=== PATIENT | female | born 1990 | race Caucasian/White ===

== ENCOUNTER 2019-10-05 07:41 | Inpatient (IN) ==
[2019-10-05] MEDS ORDERED: OXYTOCIN 30 UNITS/500 ML BAG IV PRN ×3 (08:40→22:43)
[2019-10-05 09:05] LABS: Hematocrit (blood only) 34.6 % (37-47); Hemoglobin 11.7 g/dL (12.0-16.0); Mean Corpuscular Hemoglobin 27.7 pg (25-34); Mean Platelet Volume 10.3 fL (7.4-10.4); Platelet Count 110 K/uL (130-400); RDW Coefficient of Variation 14.9 % (11.5-14.5); RDW Standard Deviation 44.4 fL (36.4-46.3); Red Blood Count 4.22 M/uL (4.2-5.4); White Blood Count 8.41 K/uL (4.8-10.8)
[2019-10-05] MEDS: LACTATED RINGER'S 1,000 ML IV PRN ×3 (09:20→18:43)
[2019-10-05 09:26] LABS: Mean Corpuscular Hgb Conc 33.8 g/dL (32-36)
--- NOTE | 2019-10-05 09:38 | Labor Progress Brief Note ---
Date of Service October 05, 2019 Subjective 29yo G1 with di-di twins and here for IOL. No OB c/o. Assessment & Plan (1) Dichorionic diamniotic twin : IOL for twins at term, Agustin + pitocin to start now. Trimester: third trimester Qualified Code(s): O30.043 - Twin , dichorionic/diamniotic, third trimester Physical Exam Genitourinary: Manual OB Exam: + cervical dilation 1 cm, + cervical effacement 80%, + station -2 and + amniotic fluid (no leakage) OB Exam Monitor Tracing: + category I Agustin placed above internal os, inflated 30cc without difficulty. Results & Data Vital Signs (Past 12 Hours) Vital Signs Temp Pulse Resp BP 10/05/19 08:27 98.8 F 88 20 133/62 10/05/19 08:23 88 133/62
--- NOTE | 2019-10-05 14:34 | Labor Progress Brief Note ---
Date of Service October 05, 2019 Subjective Reason For Note: Routine Evaluation Tolerating Contractions Assessment & Plan (1) Dichorionic diamniotic twin : Agustin balloon out at this time. AROM done, continue pitocin, epidural on request. Trimester: third trimester Qualified Code(s): O30.043 - Twin , dichorionic/diamniotic, third trimester Present on Admission?: Yes Physical Exam Genitourinary: Speculum/Bimanual Exam: + abnormal bimanual exam Manual OB Exam: + cervical dilation 3 cm and 4 cm, + cervical effacement, + station -2 and + amniotic fluid (AROM) clear OB Exam Monitor Tracing: + external FHT monitor used, + external uterine monitor used and + category I (x2) Results & Data Vital Signs (Past 12 Hours) Vital Signs Temp Pulse Resp BP 10/05/19 14:10 73 135/81 10/05/19 13:05 77 135/68 10/05/19 12:16 78 131/70 10/05/19 11:09 69 137/78 10/05/19 10:02 77 133/73 10/05/19 08:27 98.8 F 88 20 133/62 10/05/19 08:23 88 133/62 10/05/19 08:00 77 133/73
[2019-10-05] MEDS ORDERED: BUPIVACAINE 0.25% 30 ML VIAL ONE (15:03)
[2019-10-05] MEDS ORDERED: ePHEDrine sulfate 50 MG/ML AMP ONE (15:03)
[2019-10-05] MEDS ORDERED: fentaNYL citrate 100 MCG/2 ML VIAL ONE (15:03)
[2019-10-05] MEDS ORDERED: fentaNYL 2MCG/ML ROPIV 1.25MG/ML 100 ML BAG EPI ONE (15:04)
--- NOTE | 2019-10-05 16:03 | Anesthesiology Consultation ---
Date of Service October 05, 2019 Assessment & Plan Chart Review Chart Review: Acceptable Risk for Surgery and Patient NOT seen in Pre Admission Testing Consults Requested none ASA ASA2 Proposed Anesthesia Anesthesia Type: Labor Epidural Risk / Benefits Reviewed With: PT / POA / Parent / Guardian, Accepts Plan and Informed Consent Obtained History Height/Weight Height: 5 ft 10 in Weight: 102.058 kg Allergies Allergy/AdvReac Type Severity Reaction Status Date / Time No Known Drug Allergies Allergy Unknown Verified 10/03/19 10:16 Medications Home Medications Medication Instructions Recorded Confirmed Last Taken aspirin [Aspirin Low Dose] 81 mg PO DAILY 09/07/19 10/05/19 10/04/19 16:00 cholecalciferol (vitamin D3) 3,000 unit PO DAILY 09/07/19 10/05/19 10/04/19 16:00 ferrous sulfate 325 mg PO DAILY 09/07/19 10/05/19 10/04/19 16:00 vit [id number] 1 tab PO DAILY 09/07/19 10/05/19 10/04/19 16:00 [ Vitamin] folic acid 1 mg PO DAILY 09/26/19 10/05/19 10/04/19 16:00 Active Medications Generic Name Dose Route Start Last Admin Trade Name Freq PRN Reason Stop Dose Admin Lactated Ringer's 1,000 mls @ 125 mls/hr 10/05/19 08:40 10/05/19 15:56 Lr IV 10/07/19 08:39 125 mls/hr .Q8H PRN Infusion L&D Protocol Protocol Oxytocin 30 units in 500 mls @ 9 mls/hr 10/05/19 08:40 10/05/19 13:00 Pitocin IV 10/07/19 08:39 0.54 units/hr .Q24H PRN 9 mls/hr Labor Induction/Augmentation Titration Protocol 0.54 UNITS/HR NPO Date Last Intake of Fluids: 10/05/19 Time Last Intake of Fluids: 06:00 Date Last Intake of Solids: 10/05/19 Time Last Intake of Solids: 12:00 Past Medical History Medical History Abnormal finding on screening of mother History of asthma History of varicella Hx of pertussis with 34 completed weeks gestation Exercise / Class Metabolic Activity II 4-5 Yardwork/Stairs/Walk up hill Past Family History Family History Mother Breast cancer Grandmother (Maternal) Breast cancer Grandfather (Paternal) Heart disease Past Surgical History Surgical History S/P wisdom tooth extraction Past Anesthesia History No Hx of Anesthesia Complications and No Family Hx of Anesthesia Complications History of PONV No Hx of PONV and No Hx of Motion Sickness Social History Smoking Status: Never smoker Do You Dip or Chew Tobacco: No Hx Alcohol Use: No Hx Substance Use: No substance use type: does not use Physical Exam Vital Signs Last Vital Signs Temp 37.1 C 10/05/19 08:27 Pulse 71 10/05/19 16:01 Resp 20 10/05/19 08:27 BP 130/74 10/05/19 16:01 Pulse Ox 100 10/05/19 15:59 ENMT Mouth: no dentition abnormality Thyromental Distance: > or= 3.5 Finger Breadths Mallampati Class: II Neck normal visual inspection Respiratory normal respiratory effort Auscultation: lungs clear to auscultation bilaterally Cardiovascular Rate/Rhythm: regular rate and regular rhythm Psychiatric Orientation: alert Testing Laboratory Results 10/05/19 08:56
[2019-10-05] MEDS ORDERED: NALOXONE HCL 1 MG in SODIUM CHLORIDE 0.9% 1000ML 1,000 ML IV PRN (16:45)
[2019-10-05] MEDS ORDERED: NALBUPHINE HCL INJ 10 MG/ML AMP IV PRN (16:45)
[2019-10-05] MEDS ORDERED: NALOXONE HCL 0.4 MG/1 ML VIAL/CARP IV PRN (16:45)
[2019-10-05] MEDS ORDERED: ONDANSETRON INJ 2 MG/ML 2 ML VIAL IV PRN (16:45)
[2019-10-05] MEDS ORDERED: ePHEDrine sulfate 50 MG/ML AMP IV PRN (16:45)
[2019-10-05] MEDS ORDERED: fentaNYL 2MCG/ML ROPIV 1.25MG/ML 100 ML BAG EPI PRN (16:45)
[2019-10-05] MEDS ORDERED: DiphenhydrAMINE HCL 50 MG/ML VIAL IV PRN (16:45)
--- NOTE | 2019-10-05 22:29 | Anesthesia Procedure Note ---
Date of Service October 05, 2019 Anesthesia Post Epidural Note Vital Signs Vital Signs: Temp Pulse Resp BP Pulse Ox 36.9 C 77 18 130/65 99 10/05/19 19:00 10/05/19 22:17 10/05/19 19:30 10/05/19 20:04 10/05/19 22:17 Pain Intensity Bilateral Abdomen: Pain Intensity: 2 Notes Mental Status: alert / awake / arousable Nausea / Vomiting: adequately controlled Pain: adequately controlled Airway Patency, RR, SpO2: stable & adequate BP & HR: stable & adequate Hydration State: stable & adequate Neuraxial Anesthesia: was administered and sensory block is resolving Anesthetic Complications: no major complications apparent and Pt Satisfied with anesthetic care Epidural: Removed without complications and With tip intact
--- NOTE | 2019-10-05 22:35 | Delivery Summary ---
Vaginal Delivery Summary Date of Service October 05, 2019 Vaginal Delivery Summary DIAGNOSES: 1. Di-Di Twin intrauterine at 38w1d gestation. 2. Induction of labor. 3. Group B Streptococcus Neg. PROCEDURE: Spontaneous vaginal delivery x2 and repair of second degree laceration. SURGEON: Chioma Kellogg MD. AUTOMOTIVE LOT ATTENDANT: Dung Torre MD. ESTIMATED BLOOD LOSS: 500 mL. COMPLICATIONS: None. PLACENTA: Spontaneous and intact with a 3-vessel cord x2. DISPOSITION: Stable to labor and delivery. DESCRIPTION: The patient pushed well and brought the head of baby A to [facility] in OA position. The 's head was allowed to deliver with contraction force and no further active pushing, with the perineum protected during this time. There was a compound presentation of posterior/left arm with hand alongside cheek. There was no nuchal cord. The shoulders and body delivered without any difficulty, and the was vigorous and moving all extremities, and making respiratory efforts. The cord was doubly clamped by the MD and then cut. Baby A (female) was taken to the warmer for attention of the equipment installer. Vagina was examined and found to have a 2nd degree laceration. Baby B remained vertex, and with the next several contractions it was seen by transabdominal ultrasound to move down until well engaged. At that point the amnion of B was ruptured. Mom began second stage for baby B and pushed well. Baby B delivered DOP and was found to have a tight nuchal x1 that was reduced at the perineum. There was again a compound presentation of the L / posterior arm. The shoulders and body delivered without any difficulty. The cord of B was clamped and cut, and baby B (male) was taken to the warmer. The cervix, vagina and perineum were examined and were found to have a second degree laceration, which was repaired using vicryl suture with two crown sutures to rebuild the perineal body. Rectal exam at the completion of repair showed no defects or suture. The fundus was firm and lochia minimal immediately after delivery.
[2019-10-05] MEDS ORDERED: DIPHTHERIA/TETANUS/PERTUSSIS 0.5 ML SYR/VIAL IM ONE (22:43)
[2019-10-05] MEDS ORDERED: SUPERCREAM 0.870% 15 GM JAR EXT PRN (22:43)
[2019-10-05] MEDS ORDERED: BENZOCAINE 20% AER SPR 82.5 GM CAN EXT PRN (22:43)
[2019-10-05] MEDS ORDERED: LACTATED RINGER'S 1,000 ML IV SCH (22:43)
[2019-10-05] MEDS ORDERED: ACETAMINOPHEN 325 MG TAB PO PRN (22:43)
[2019-10-05] MEDS ORDERED: bisacodyL 10 MG SUPP PR PRN (22:43)
[2019-10-05] MEDS ORDERED: HYDROCORTISONE ACETATE 25 MG SUPP PR PRN (22:43)
[2019-10-06] MEDS: IBUPROFEN 600 MG TAB PO PRN ×3 (00:56→14:22)
[2019-10-06 06:04] LABS: Hematocrit (blood only) 31.2 % (37-47); Hemoglobin 10.5 g/dL (12.0-16.0); Mean Corpuscular Hemoglobin 27.4 pg (25-34); Mean Corpuscular Hgb Conc 33.7 g/dL (32-36); Mean Corpuscular Volume 81.5 fL (80-100); Mean Platelet Volume 9.8 fL (7.4-10.4); Platelet Count 124 K/uL (130-400); RDW Coefficient of Variation 14.7 % (11.5-14.5); Red Blood Count 3.83 M/uL (4.2-5.4); White Blood Count 13.23 K/uL (4.8-10.8)
[2019-10-06] MEDS: DOCUSATE SODIUM 100 MG CAP PO SCH ×2 (07:49→20:09)
[2019-10-06] MEDS: PRENATAL VITAMIN 1 TAB PO SCH (07:49)
--- NOTE | 2019-10-06 07:56 | Obstetrical Progress Note ---
Date of Service October 06, 2019 Assessment & Plan (1) Dichorionic diamniotic twin : PPD#1 twin vaginal delivery. Pain at perineum not well controlled with ezequiel, RN aware to offer percocet. Patient attempting to BF. Trimester: third trimester Qualified Code(s): O30.043 - Twin , dichorionic/diamniotic, third trimester Subjective Ambulation: ambulating normally Voiding: no voiding problems Diet Tolerance:: regular diet Lochia:: Small Feeding Type:: breast feeding Physical Exam Constitutional WD/WN, vitals as above Eyes PERRL, conjunctivae normal, anicteric sclerae Neck normal visual inspection Respiratory normal respiratory effort and able to speak in complete sentences; no respiratory distress and no labored breathing Cardiovascular Rate/Rhythm: regular rate and regular rhythm Extremities: no edema Chest (Breasts) Chest: normal inspection of chest Gastrointestinal (Abdomen) Inspection/Auscultation: abdomen normal to inspection Soft, postgravid Psychiatric A+Ox3, euthymic affect Genitourinary OB Exam Abdomen: + fundal height Fundus: + firm and + relation to umbilicus (fundus just below umbilicus); not tender Results & Data Vital Signs (Past 12 Hours) Vital Signs Temp Pulse Pulse Resp BP BP Pulse Ox 10/06/19 07:25 98.1 F 77 16 132/80 97 10/06/19 03:50 98.2 F 79 16 130/72 98 10/06/19 01:15 98.2 F 79 16 130/72 99 10/06/19 00:29 98.1 F 89 18 133/74 10/06/19 00:14 74 16 128/67 10/05/19 23:58 68 16 128/66 10/05/19 23:43 71 16 128/63 10/05/19 23:29 68 18 139/65 10/05/19 23:14 73 16 152/68 H 10/05/19 22:58 67 18 150/72 H 10/05/19 22:43 74 18 137/71 10/05/19 22:30 98.2 F 70 16 132/65 10/05/19 22:17 77 99 10/05/19 22:12 89 100 10/05/19 22:07 76 100 10/05/19 22:02 82 100 10/05/19 21:57 81 100 10/05/19 21:56 82 89 L 10/05/19 21:52 95 H 100 10/05/19 21:48 82 90 10/05/19 21:47 69 100 10/05/19 21:30 20 10/05/19 21:00 98.2 F 18 10/05/19 20:45 18 10/05/19 20:09 83 100 10/05/19 20:04 80 130/65 100 10/05/19 19:59 80 100
[2019-10-06] MEDS: OXYCODONE/ACETAMINOPHEN 5mg/325mg TAB PO PRN ×2 (09:10→17:57)
[2019-10-06] MEDS ORDERED: bisacodyL 5 MG TABEC PO SCH (20:00)
[2019-10-07] MEDS: IBUPROFEN 600 MG TAB PO PRN (02:40)
[2019-10-07 06:40] LABS: Hematocrit (blood only) 29.2 % (37-47); Hemoglobin 9.8 g/dL (12.0-16.0)
--- NOTE | 2019-10-07 07:54 | Obstetrical Progress Note ---
Date of Service October 07, 2019 Assessment & Plan (1) Supervision of high risk , antepartum: 29yo PPD 2 from twin . Doing well. Stable for discharge Subjective Ambulation: ambulating normally Voiding: no voiding problems Passing Gas:: Yes Diet Tolerance:: regular diet Lochia:: Moderate Feeding Type:: breast feeding Physical Exam Constitutional WD/WN, vitals as above Respiratory normal respiratory effort; no respiratory distress and no labored breathing Gastrointestinal (Abdomen) Inspection/Auscultation: abdomen normal to inspection; abdomen not distended Percussion/Palpation: abdomen soft; abdomen nontender, no guarding and abdomen not rigid Genitourinary OB Exam Abdomen: + fundal height Fundus: + firm and + relation to umbilicus (Below); not tender and not boggy Results & Data Vital Signs (Past 12 Hours) Vital Signs Temp Pulse Resp BP 10/06/19 23:15 36.7 C 76 18 131/76 10/06/19 20:55 36.6 C 62 18 145/78 H
[2019-10-07] MEDS: PRENATAL VITAMIN 1 TAB PO SCH (08:47)
[2019-10-07] MEDS: DOCUSATE SODIUM 100 MG CAP PO SCH (08:47)
== END 2019-10-07 15:00 | disposition home or self-care (01) | DRG 807 ==
LOC: 4S1 07:41 → 4S2 10-06 01:05